=== PATIENT | female | born 1995 | race Two or more races ===

== ENCOUNTER 2017-04-12 20:00 | Emergency (ER) | payer MEDICAID ==
[2017-04-12] MEDS ORDERED: NS 1,000 ML IV ONE ×2 (20:21→22:39)
--- NOTE | 2017-04-12 20:36 | EDPHY ---
H & P Stated Complaint: Epigastric pain since am, UA home test +Preg Time Seen by Provider: 04/12/17 20:09 HPI/ROS: Patient's mother also provides history this GOPO patient presents with epigastric pain described as pressure and sharp in nature that started shortly after eating part of the breakfast breed amounts at 11:15 a.m. this morning. The pain is been constant since and is described as severe intensity peak intensity 9/10 currently 7 per 8/10. The pain worsened slightly when she is walking or upright. No other exacerbating factors are noted. She tried ibuprofen before realizing she is not supposed to take ibuprofen early earlier today and also took some Tums with no relief from either medication. She has never had this pain before. She has had some acid reflux symptoms recently-slightly more than usual. She has also had repeated nausea and vomiting today. She is sporadic nausea vomiting over the past week that she attributes to early . Her last menstrual. Was mid February and she had positive home test this week. Her mother brought her in by private vehicle for further evaluation. Patient reports that this was unintentional but that she wants to keep the baby. ROS: Constitutional: No fevers or chills HEENT: No URI symptoms or other complaints Pulmonary: No cough. No shortness of breath. Cardiovascular: No heart palpitations lightheadedness GI: No hematemesis or coffee-ground emesis. No lower belly pain. : No vaginal discharge or vaginal bleeding. No dysuria. Integumentary: No skin rash Endocrine: No complaints 10 point ROS is otherwise negative. Source: Patient, Family Exam Limitations: No limitations - Personal History LMP (Females 10-55): Current Tetanus/Diphtheria Vaccine: Unsure Current Tetanus Diphtheria and Acellular Pertussis (TDAP): Unsure - Medical/Surgical History Hx Asthma: No Hx Chronic Respiratory Disease: No Hx Diabetes: No Hx Cardiac Disease: No Hx Renal Disease: No Hx Cirrhosis: No Hx Alcoholism: No Hx HIV/AIDS: No Hx Splenectomy or Spleen Trauma: No Other PMH: childhood asthma. - Family History Significant Family History: No pertinent family hx - Social History Smoking Status: Never smoked Alcohol Use: Rarely Drug Use: None - Physical Exam Exam: General Appearance: Alert, no distress. Eyes: Pupils equal and round no pallor or injection. ENT, Mouth: Mucous membranes moist. Respiratory: There are no retractions, lungs are clear to auscultation. Cardiovascular: Regular rate and rhythm. Gastrointestinal: Hypoactive bowel sounds. Patient has diffuse upper belly tenderness that seems to be most prominent and left upper quadrant epigastrium with moderate right upper quadrant tenderness. No rebound. She has mild voluntary guarding. No hepatomegaly or splenomegaly. Back: No CVA tenderness Neurological: GCS 15. No focal deficits noted. Skin: Warm and dry, no rashes. Musculoskeletal: Neck is supple nontender. Extremities are symmetrical, full range of motion. Psychiatric: Slightly flat affect but otherwise mood is normal. DIFFERENTIAL DIAGNOSIS: After history and physical exam differential diagnosis was considered for gastritis, esophagitis, pancreatitis, cholecystitis, ulcer Constitutional: Initial Vital Signs Temperature (C) 36.5 C 04/12/17 20:05 Heart Rate 69 04/12/17 20:05 Respiratory Rate 18 04/12/17 20:05 Blood Pressure 124/70 H 04/12/17 20:05 O2 Sat (%) 99 04/12/17 20:05 O2 Delivery Mode Room Air Allergies/Adverse Reactions: No Known Allergies Allergy (Unverified 04/12/17 20:14) Home Medications: Medication Instructions Recorded Doxylamine/Pyridoxine HCl (B6) 2 each PO HS #30 tablet. 04/12/17 [Sridevi Griffith 10-10 mg Tablet] Pantoprazole Sodium [Protonix 40mg 40 mg PO DAILY #20 tab 04/12/17 (*)] Promethazine 25Mg Supp Prepk#4 1 btl TAKEHOME Q6 #1 btl 04/12/17 [Phenergan 25Mg Supp Prepack#4] Medical Decision Making ED Course/Re-evaluation: IV normal saline bolus IV morphine and Benadryl IV With mild improvement in pain and nausea. Patient is treated with Maalox thereafter without much change in her symptoms. IV Protonix. She then had recurrence of vomiting. No hematemesis. No coffee- ground emesis. Emesis appears slightly bilious She felt improved after vomiting initially declined IV Reglan and Benadryl however had recurrence at 10:40 p.m. and then agreed to medications. IV Reglan and Benadryl Repeat 1L NS bolus Discussion: Given benign LFTs and lipase, history of frequent vomiting recently in association with 1st trimester , I suspect this patient has gastritis & possibly esophagitis. I counseled regarding this. She has no lower belly tenderness or pain that would suggest ectopic . At a 11:15 p.m. this patient is resting comfortably with plan for discharge home pending no further emesis. I did discuss this case with Dr. Roberts will assume care if there is any complications prior to discharge. - Data Points Laboratory Results: Laboratory Results 04/12/17 20:20 04/12/17 20:20 04/12/17 04/12/17 04/12/17 21:55 20:20 20:20 WBC RBC Hgb Hct MCV MCH MCHC RDW Plt Count MPV Neut % (Auto) Lymph % (Auto) [place] % (Auto) Eos % (Auto) Baso % (Auto) Nucleat RBC Rel Count Absolute Neuts (auto) Absolute Lymphs (auto) Absolute Monos (auto) Absolute Eos (auto) Absolute Basos (auto) Absolute Nucleated RBC Immature Gran % Immature Gran # Sodium 137 mEq/L mEq/L (134-144) Potassium 4.4 mEq/L mEq/L (3.5-5.2) Chloride 100 mEq/L mEq/L (97-110) Carbon Dioxide 21 mEq/l L mEq/l (22-31) Anion Gap 16 mEq/L mEq/L (8-16) BUN 8 mg/dL mg/dL (7-23) Creatinine 0.6 mg/dL mg/dL (0.6-1.0) Estimated GFR > 60 Glucose 103 mg/dL H mg/dL (70-100) Calcium 10.4 mg/dL mg/dL (8.5-10.4) Total Bilirubin 0.9 mg/dL mg/dL (0.1-1.4) AST 23 IU/L IU/L (14-46) ALT 28 IU/L IU/L (9-52) Alkaline Phosphatase 67 IU/L IU/L (38-126) Total Protein 8.3 g/dL H g/dL (6.3-8.2) Albumin 4.7 g/dL g/dL (3.5-5.0) Lipase 139 IU/L IU/L (23-300) Beta HCG, Qual POSITIVE Urine Color YELLOW Urine Appearance CLEAR Urine pH 7.5 (5.0-7.5) Ur Specific [place] 1.015 (1.002-1.030) Urine Protein TRACE H (NEGATIVE) Urine Ketones 3+ H (NEGATIVE) Urine Blood NEGATIVE (NEGATIVE) Urine Nitrate NEGATIVE (NEGATIVE) Urine Bilirubin NEGATIVE (NEGATIVE) Urine Urobilinogen 1.0 EU EU (0.2-1.0) Ur Leukocyte Esterase NEGATIVE (NEGATIVE) Urine RBC 0-1 /hpf /hpf (0-3) Urine WBC 0-1 /hpf /hpf (0-3) Ur Epithelial Cells 2+ /lpf H /lpf (NONE-1+) Urine Bacteria 2+ /hpf H /hpf (NONE SEEN) Urine Mucus 3+ /lpf H /lpf (NONE-1+) Urine Glucose NEGATIVE (NEGATIVE) 04/12/17 20:20 WBC 12.89 10^3/uL H 10^3/uL (3.80-9.50) RBC 5.36 10^6/uL H 10^6/uL (4.18-5.33) Hgb 14.2 g/dL g/dL (12.6-16.3) Hct 43.0 % % (38.0-47.0) MCV 80.2 fL L fL (81.5-99.8) MCH 26.5 pg L pg (27.9-34.1) MCHC 33.0 g/dL g/dL (32.4-36.7) RDW 13.3 % % (11.5-15.2) Plt Count 405 10^3/uL H 10^3/uL (150-400) MPV 9.6 fL fL (8.7-11.7) Neut % (Auto) 75.0 % H % (39.3-74.2) Lymph % (Auto) 18.5 % % (15.0-45.0) [place] % (Auto) 5.6 % % (4.5-13.0) Eos % (Auto) 0.3 % L % (0.6-7.6) Baso % (Auto) 0.2 % L % (0.3-1.7) Nucleat RBC Rel Count 0.0 % % (0.0-0.2) Absolute Neuts (auto) 9.66 10^3/uL H 10^3/uL (1.70-6.50) Absolute Lymphs (auto) 2.39 10^3/uL 10^3/uL (1.00-3.00) Absolute Monos (auto) 0.72 10^3/uL 10^3/uL (0.30-0.80) Absolute Eos (auto) 0.04 10^3/uL 10^3/uL (0.03-0.40) Absolute Basos (auto) 0.03 10^3/uL 10^3/uL (0.02-0.10) Absolute Nucleated RBC 0.00 10^3/uL 10^3/uL (0-0.01) Immature Gran % 0.4 % % (0.0-1.1) Immature Gran # 0.05 10^3/uL 10^3/uL (0.00-0.10) Sodium Potassium Chloride Carbon Dioxide Anion Gap BUN Creatinine Estimated GFR Glucose Calcium Total Bilirubin AST ALT Alkaline Phosphatase Total Protein Albumin Lipase Beta HCG, Qual Urine Color Urine Appearance Urine pH Ur Specific [place] Urine Protein Urine Ketones Urine Blood Urine Nitrate Urine Bilirubin Urine Urobilinogen Ur Leukocyte Esterase Urine RBC Urine WBC Ur Epithelial Cells Urine Bacteria Urine Mucus Urine Glucose Medications Given: Discontinued Medications Al Hydroxide/Mg Hydroxide (Maalox Susp) 30 ml PO EDNOW ONE Stop: 04/12/17 20:52 Last Admin: 04/12/17 21:00 Dose: 30 ml Diphenhydramine HCl (Benadryl Injection) 25 mg IVP EDNOW ONE Stop: 04/12/17 20:30 Last Admin: 04/12/17 20:35 Dose: 25 mg Diphenhydramine HCl (Benadryl Injection) 25 mg IVP EDNOW ONE Stop: 04/12/17 21:52 Last Admin: 04/12/17 22:41 Dose: 25 mg Sodium Chloride (Ns) 1,000 mls @ 0 mls/hr IV EDNOW ONE; Wide Open PRN Reason: Protocol Stop: 04/12/17 20:22 Last Admin: 04/12/17 20:24 Dose: 1,000 mls Pantoprazole Sodium 40 mg/ (Sodium Chloride) 100 mls @ 200 mls/hr IV EDNOW ONE Stop: 04/12/17 21:45 Last Admin: 04/12/17 21:23 Dose: 100 mls Sodium Chloride (Ns) 1,000 mls @ 0 mls/hr IV EDNOW ONE; Wide Open PRN Reason: Protocol Stop: 04/12/17 22:40 Last Admin: 04/12/17 22:42 Dose: 1,000 mls Metoclopramide HCl (Reglan Injection) 5 mg IVP EDNOW ONE Stop: 04/12/17 21:52 Last Admin: 04/12/17 22:41 Dose: 5 mg Morphine Sulfate (Morphine) 4 mg IVP EDNOW ONE Stop: 04/12/17 20:30 Last Admin: 04/12/17 20:36 Dose: 4 mg Departure - Departure Disposition: Home, Routine, Self-Care Clinical Impression: First trimester , Vomiting during , Dehydration Gastritis Qualifiers: Gastritis type: other gastritis Chronicity: acute Gastritis bleeding: without bleeding Qualified Code(s): K29.00 - Acute gastritis without bleeding Condition: Good Instructions: Nausea and Vomiting in (ED), Gastritis (ED), Diet for Stomach Ulcers and Gastritis (ED) Additional Instructions: Diagnoses: 1. Gastritis 2. Vomiting with 1st trimester Plan: [place] diet Drink plenty fluids Protonix acid fabricio Diclegis for nausea vomiting as prescribed If you still unable to control nausea/vomiting with diclegis, then use phenergan suppository - 1 per 6 hrs as needed. Call Dr. Beckett, [facility] to arrange follow-up appointment for further evaluation. Return to the emergency department for any significant worsening despite the treatment plan Referrals: NONE *PRIMARY CARE P,. [Primary Care Provider] - As per Instructions Tanesha Beckett DO [Doctor of Osteopathy] - As per Instructions Prescriptions: Doxylamine/Pyridoxine HCl (B6) [Sridevi Griffith 10-10 mg Tablet] 2 each PO HS #30 tablet. Pantoprazole Sodium [Protonix 40mg (*)] 40 mg PO DAILY #20 tab Promethazine 25Mg Supp Prepk#4 [Phenergan 25Mg Supp Prepack#4] 1 btl TAKEHOME Q6 #1 btl
[2017-04-12 20:38] LABS: % IMMATURE GRANULYOCYTES 0.4 % (0.0-1.1); ABSOLUTE IMMATURE GRANULOCYTES 0.05 10^3/uL (0.00-0.10); ADD DIFF? NO; ADD MORPH? NO; ADD SCAN? NO; ATYPICAL LYMPHOCYTE FLAG 10 (0-99); FRAGMENT RBC FLAG 0 (0-99); HEMOGLOBIN 14.2 g/dL (12.6-16.3); LEFT SHIFT FLG 0 (0-99); LIPEMIA HEMOLYSIS FLAG 80 (0-99); MEAN CELL HEMOGLOBIN 26.5 pg (27.9-34.1); MEAN CELL VOLUME 80.2 fL (81.5-99.8); MEAN PLATELET VOLUME 9.6 fL (8.7-11.7); PLATELET CLUMPS FLAG 0 (0-99); PLATELET COUNT 405 10^3/uL (150-400); RED BLOOD CELL COUNT 5.36 10^6/uL (4.18-5.33); RED CELL DISTRIBUTION WIDTH 13.3 % (11.5-15.2)
[2017-04-12 20:43] VITALS: O2SAT 100
[2017-04-12 20:45] LABS: ALANINE AMINOTRANSFERASE 28 IU/L (9-52); ALBUMIN 4.7 g/dL (3.5-5.0); ALKALINE PHOSPHATASE 67 IU/L (38-126); ANION GAP 16 mEq/L (8-16); ASPARTATE AMINOTRANSFERASE 23 IU/L (14-46); BILIRUBIN,TOTAL 0.9 mg/dL (0.1-1.4); CALCIUM 10.4 mg/dL (8.5-10.4); CARBON DIOXIDE 21 mEq/l (22-31); CHLORIDE 100 mEq/L (97-110); CREATININE 0.6 mg/dL (0.6-1.0); GLOMERULAR FILTRATION RATE > 60; GLUCOSE 103 mg/dL (70-100); POTASSIUM 4.4 mEq/L (3.5-5.2); SODIUM 137 mEq/L (134-144); TOTAL PROTEIN 8.3 g/dL (6.3-8.2)
[2017-04-12] MEDS ORDERED: MAG HYDROX/AL HYDROX/SIMETH 30 ML UDCUP PO ONE (20:51)
[2017-04-12 21:12] VITALS: PULSE 73
[2017-04-12] MEDS ORDERED: PANTOPRAZOLE SODIUM 40 MG in NS 100 ML IV ONE (21:16)
[2017-04-12] MEDS ORDERED: ONDANSETRON 4 MG/2 ML VIAL ONE (21:49)
[2017-04-12] MEDS ORDERED: METOCLOPRAMIDE 10 MG/2 ML VIAL IVP ONE (21:51)
[2017-04-12 22:19] LABS: COLOR YELLOW; LEUKOCYTE ESTERASE,URINE NEGATIVE (NEGATIVE); NITRITE,URINE NEGATIVE (NEGATIVE); PH,URINE 7.5 (5.0-7.5)
[2017-04-12 22:32] LABS: MUCUS 3+ /lpf (NONE-1+)
[2017-04-12 22:35] LABS: BACTERIA 2+ /hpf (NONE SEEN); RBC,URINE 0-1 /hpf (0-3); WBC,URINE 0-1 /hpf (0-3)
[2017-04-13 00:06] VITALS: BP 104/71; RESP 14; TEMP 97.9
== END 2017-04-12 23:55 | disposition home or self-care (01) ==
LOC: CED 20:00
DX: O21.0 Mild hyperemesis gravidarum (principal); O99.281 Endocrine, nutritional and metabolic diseases complicating pregnancy, first trimester; O99.611 Diseases of the digestive system complicating pregnancy, first trimester; J45.909 Unspecified asthma, uncomplicated; E86.9 Volume depletion, unspecified; Z3A.00 Weeks of gestation of pregnancy not specified
CPT/HCPCS: 80053-PO; 81003-PO; 81015-PO; 83690-PO; 84703-PO; 85025-PO; 96365; J1200; J2405; J2765

== ENCOUNTER 2017-05-08 16:26 | Emergency (ER) | payer MEDICAID ==
--- NOTE | 2017-05-08 16:43 | EDPHY ---
H & P Time Seen by Provider: 05/08/17 16:37 - Medical/Surgical History Hx Asthma: No Hx Chronic Respiratory Disease: No Hx Diabetes: No Hx Cardiac Disease: No Hx Renal Disease: No Hx Cirrhosis: No Hx Alcoholism: No Hx HIV/AIDS: No Hx Splenectomy or Spleen Trauma: No Other PMH: childhood asthma. - Social History Smoking Status: Never smoked Constitutional: Initial Vital Signs Temperature (C) 37.2 C 05/08/17 16:36 Heart Rate 99 05/08/17 16:36 Respiratory Rate 16 05/08/17 16:36 Blood Pressure 119/81 H 05/08/17 16:36 O2 Sat (%) 98 05/08/17 16:36 O2 Delivery Mode Room Air Allergies/Adverse Reactions: No Known Allergies Allergy (Unverified 04/12/17 20:14) Home Medications: Medication Instructions Recorded Doxylamine/Pyridoxine HCl (B6) 2 each PO HS #30 tablet. 04/12/17 [Sridevi Griffith 10-10 mg Tablet] Pantoprazole Sodium [Protonix 40mg 40 mg PO DAILY #20 tab 04/12/17 (*)] Promethazine 25Mg Supp Prepk#4 1 btl TAKEHOME Q6 #1 btl 04/12/17 [Phenergan 25Mg Supp Prepack#4] Medical Decision Making ED Course/Re-evaluation: CHIEF COMPLAINT: Nausea and vomiting HISTORY OF PRESENT ILLNESS: Patient is 13 weeks and she has had significant issues with nausea and vomiting throughout the . She was in this hospital a few weeks ago with similar problem. She followed up with her OB doctor who gave her a couple of other treatment protocols that seem to be helping but over the last 24-48 hours she has been much worse. She can barely hold down water. She denies fever or chills she denies diarrhea she denies abdominal cramps. She just has severe nausea and vomiting similar to her morning sickness. REVIEW OF SYSTEMS: A 10 point review of systems was performed and is negative with the exception of the elements mentioned in the history of present illness. PHYSICAL EXAM: HR, BP, O2 Sat, RR. Temp noted General Appearance: Alert, well hydrated, appropriate, and non-toxic appearing. Head: Atraumatic without scalp tenderness or obvious injury Eyes: Pupils equal, round, reactive to light and accommodation, EOMI, no trauma , no injection. Ears: Clear bilaterally, no perforation, normal landmarks Nose: Atraumatic, no rhinorrhea, clear. Throat: There is no erythema or exudates, no lesions, normal tonsils, mucus membranes moist. Neck: Supple, 2+ carotid upstroke, nontender, no lymphadenopathy. Respiratory: No retractions, no distress, no wheezes, and no accessory muscle use. Lungs are clear to auscultation bilaterally. Cardiovascular: Regular rate and rhythm, no murmurs, rubs, or gallops. Bilateral carotid, radial, dorsalis pedis, and posterior tibial pulses intact. Good capillary refill all extremities. Gastrointestinal: Abdomen is soft, nontender, non-distended, no masses, no rebound, no guarding, no peritoneal signs. Musculoskeletal: Normal active ROM of all extremities, atraumatic. Neurological: Alert, appropriate, and interactive. The patient has normal DTRs and non-focal cranial nerves, motor, sensory, and cerebellar exam. Skin: No rashes, good turgor, no nodules on palpation. Past medical history: Patient denies Past surgical history: Patient denies Family history: Noncontributory Social history: Here with her mother, employed, does not use tobacco drugs or alcohol DIFFERENTIAL DIAGNOSIS: The differential diagnosis for the patient's nausea and vomiting included but was not limited to gastroenteritis, gastritis, appendicitis, hyperemesis gravidarum, and medication side effect. MEDICAL DECISION MAKING: This patient is slightly dehydrated. She has been unable to hold down liquids since yesterday. We will give her 2 L to 3 L of intravenous fluid and 4 mg of Zofran to start. We will add additional antiemetics and fluids if needed. She has a follow-up appointment with her OB doctor tomorrow. This patient is feeling much better from a nausea standpoint and she received 2 L of fluid and is feeling more hydrated. We did give her a GI cocktail since she was having some gastritis type symptoms however she did vomit that up. I do not think there is much else to do at this point. The patient is safe. The patient is hydrated. The patient has Zofran at home. She has an appointment tomorrow with her physician. - Data Points Laboratory Results: Laboratory Results 05/08/17 16:54 05/08/17 16:54 05/08/17 05/08/17 16:54 16:54 WBC 13.17 10^3/uL H 10^3/uL (3.80-9.50) RBC 5.34 10^6/uL H 10^6/uL (4.18-5.33) Hgb 14.1 g/dL g/dL (12.6-16.3) Hct 42.5 % % (38.0-47.0) MCV 79.6 fL L fL (81.5-99.8) MCH 26.4 pg L pg (27.9-34.1) MCHC 33.2 g/dL g/dL (32.4-36.7) RDW 13.8 % % (11.5-15.2) Plt Count 328 10^3/uL 10^3/uL (150-400) MPV 9.5 fL fL (8.7-11.7) Neut % (Auto) 80.5 % H % (39.3-74.2) Lymph % (Auto) 12.8 % L % (15.0-45.0) [place] % (Auto) 6.0 % % (4.5-13.0) Eos % (Auto) 0.0 % L % (0.6-7.6) Baso % (Auto) 0.2 % L % (0.3-1.7) Nucleat RBC Rel Count 0.0 % % (0.0-0.2) Absolute Neuts (auto) 10.62 10^3/uL H 10^3/uL (1.70-6.50) Absolute Lymphs (auto) 1.68 10^3/uL 10^3/uL (1.00-3.00) Absolute Monos (auto) 0.79 10^3/uL 10^3/uL (0.30-0.80) Absolute Eos (auto) 0.00 10^3/uL L 10^3/uL (0.03-0.40) Absolute Basos (auto) 0.02 10^3/uL 10^3/uL (0.02-0.10) Absolute Nucleated RBC 0.00 10^3/uL 10^3/uL (0-0.01) Immature Gran % 0.5 % % (0.0-1.1) Immature Gran # 0.06 10^3/uL 10^3/uL (0.00-0.10) Sodium 137 mEq/L mEq/L (134-144) Potassium 4.0 mEq/L mEq/L (3.5-5.2) Chloride 101 mEq/L mEq/L (97-110) Carbon Dioxide 19 mEq/l L mEq/l (22-31) Anion Gap 17 mEq/L H mEq/L (8-16) BUN 8 mg/dL mg/dL (7-23) Creatinine 0.5 mg/dL L mg/dL (0.6-1.0) Estimated GFR > 60 Glucose 106 mg/dL H mg/dL (70-100) Calcium 10.2 mg/dL mg/dL (8.5-10.4) Medications Given: Discontinued Medications Al Hydroxide/Mg Hydroxide (Maalox Susp) 30 ml PO ONCE ONE Stop: 05/08/17 17:43 Last Admin: 05/08/17 17:54 Dose: 30 ml Hyoscyamine Sulfate (Levsin, Hyomax-Sl) 0.25 mg PO ONCE ONE Stop: 05/08/17 17:43 Last Admin: 05/08/17 17:54 Dose: 0.25 mg Sodium Chloride (Ns) 1,000 mls @ 0 mls/hr IV EDNOW ONE; Wide Open PRN Reason: Protocol Stop: 05/08/17 16:45 Last Admin: 05/08/17 16:54 Dose: 1,000 mls Sodium Chloride (Ns) 1,000 mls @ 0 mls/hr IV EDNOW ONE; Wide Open PRN Reason: Protocol Stop: 05/08/17 16:45 Last Admin: 05/08/17 17:39 Dose: 1,000 mls Lidocaine (Lidocaine 2% Viscous) 15 ml PO ONCE ONE Stop: 05/08/17 17:43 Last Admin: 05/08/17 17:54 Dose: 15 ml Ondansetron HCl (Zofran) 4 mg IVP EDNOW ONE Stop: 05/08/17 16:45 Last Admin: 05/08/17 16:58 Dose: 4 mg Departure - Departure Disposition: Home, Routine, Self-Care Clinical Impression: Hyperemesis gravidarum with dehydration Condition: Good Instructions: Hyperemesis Gravidarum (ED) Additional Instructions: Follow up with your doctor as scheduled tomorrow Referrals: NONE *PRIMARY CARE P,. [Primary Care Provider] - As per Instructions
[2017-05-08] MEDS ORDERED: NS 1,000 ML IV ONE ×2 (16:44)
[2017-05-08] MEDS ORDERED: ONDANSETRON 4 MG/2 ML VIAL IVP ONE (16:44)
[2017-05-08 17:25] LABS: % IMMATURE GRANULYOCYTES 0.5 % (0.0-1.1); ABSOLUTE IMMATURE GRANULOCYTES 0.06 10^3/uL (0.00-0.10); ADD DIFF? NO; ADD MORPH? NO; ADD SCAN? NO; ATYPICAL LYMPHOCYTE FLAG 0 (0-99); FRAGMENT RBC FLAG 0 (0-99); HEMATOCRIT 42.5 % (38.0-47.0); HEMOGLOBIN 14.1 g/dL (12.6-16.3); LEFT SHIFT FLG 0 (0-99); LIPEMIA HEMOLYSIS FLAG 80 (0-99); MEAN CELL HEMOGLOBIN 26.4 pg (27.9-34.1); MEAN CELL HEMOGLOBIN CONCENTR. 33.2 g/dL (32.4-36.7); MEAN CELL VOLUME 79.6 fL (81.5-99.8); MEAN PLATELET VOLUME 9.5 fL (8.7-11.7); PLATELET CLUMPS FLAG 0 (0-99); PLATELET COUNT 328 10^3/uL (150-400); RED BLOOD CELL COUNT 5.34 10^6/uL (4.18-5.33); RED CELL DISTRIBUTION WIDTH 13.8 % (11.5-15.2)
[2017-05-08 17:36] LABS: ANION GAP 17 mEq/L (8-16); CALCIUM 10.2 mg/dL (8.5-10.4); CARBON DIOXIDE 19 mEq/l (22-31); CHLORIDE 101 mEq/L (97-110); CREATININE 0.5 mg/dL (0.6-1.0); GLOMERULAR FILTRATION RATE > 60; GLUCOSE 106 mg/dL (70-100); SODIUM 137 mEq/L (134-144)
[2017-05-08] MEDS ORDERED: HYOSCYAMINE SULFATE 0.125 MG TAB PO ONE (17:42)
[2017-05-08] MEDS ORDERED: LIDOCAINE 2% VISCOUS 15 ML UDCUP PO ONE (17:42)
[2017-05-08] MEDS ORDERED: MAG HYDROX/AL HYDROX/SIMETH 30 ML UDCUP PO ONE (17:42)
[2017-05-08 18:16] VITALS: BP 138/58; PULSE 85; RESP 18; O2SAT 99
[2017-05-08 18:17] VITALS: TEMP 97.9
== END 2017-05-08 18:18 | disposition home or self-care (01) ==
LOC: CED 16:26
DX: O21.1 Hyperemesis gravidarum with metabolic disturbance (principal); J45.909 Unspecified asthma, uncomplicated
CPT/HCPCS: 80048-PO; 85025-PO; 96374; J2405

== ENCOUNTER 2017-05-21 16:25 | Emergency (ER) | payer MEDICAID ==
[2017-05-21] MEDS ORDERED: NS 1,000 ML IV ONE ×2 (16:40)
--- NOTE | 2017-05-21 16:42 | EDPHY ---
H & P Stated Complaint: vomiting Since April visit , ~ 15ks Time Seen by Provider: 05/21/17 16:36 HPI/ROS: CHIEF COMPLAINT: Vomiting HISTORY OF PRESENT ILLNESS: The patient is a 21-year-old female female at 15 weeks gestational age. She is followed by [facility]. She has hyperemesis gravidarum. She has been here 3 times for hydration. She is currently taking Diclegis and Zofran with minimal improvement. She denies cramping bleeding or discharge. No urinary symptoms. No abdominal pain. No fever. REVIEW OF SYSTEMS: Constitutional: denies: chills, fever, recent illness, recent injury EENTM: denies: blurred vision, double vision, nose congestion Respiratory: denies: cough, shortness of breath Cardiac: denies: chest pain, irregular heart rate, lightheadedness, palpitations Gastrointestinal/Abdominal: See HPI, no diarrhea Genitourinary: denies: dysuria, frequency, hematuria, pain Musculoskeletal: denies: joint pain, muscle pain Skin: denies: lesions, rash, jaundice, bruising Neurological: denies: headache, numbness, paresthesia, tingling, dizziness, weakness Hematologic/Lymphatic: denies: blood clots, easy bleeding, easy bruising Immunologic/allergic: denies: HIV/AIDS, transplant EXAM: GENERAL: Well-appearing, well-nourished and in no acute distress. HEAD: Atraumatic, normocephalic. EYES: Pupils equal round and reactive to light, extraocular movements intact, sclera anicteric, conjunctiva are normal. ENT: TMs normal, nares patent, oropharynx clear without exudates. Moist mucous membranes. NECK: Normal range of motion, supple without lymphadenopathy or JVD. LUNGS: Breath sounds clear to auscultation bilaterally and equal. No wheezes rales or rhonchi. HEART: Regular rate and rhythm without murmurs, rubs or gallops. ABDOMEN: Gravid uterus, nontender, no contractions, nontender abdomen BACK: No CVA tenderness, no spinal tenderness, step-offs or deformities EXTREMITIES: Normal range of motion, no pitting or edema. No clubbing or cyanosis. NEUROLOGICAL: Cranial nerves II through XII grossly intact. Normal speech, normal gait. 5/5 strength, normal movement in all extremities, normal sensation PSYCH: Normal mood, normal affect. SKIN: Warm, dry, normal turgor, no visible rashes or lesions. Source: Patient Exam Limitations: No limitations - Personal History LMP (Females 10-55): Current Tetanus/Diphtheria Vaccine: Unsure Current Tetanus Diphtheria and Acellular Pertussis (TDAP): Unsure - Medical/Surgical History Hx Asthma: No Hx Chronic Respiratory Disease: No Hx Diabetes: No Hx Cardiac Disease: No Hx Renal Disease: No Hx Cirrhosis: No Hx Alcoholism: No Hx HIV/AIDS: No Hx Splenectomy or Spleen Trauma: No Other PMH: childhood asthma. - Family History Significant Family History: No pertinent family hx - Social History Smoking Status: Never smoked Alcohol Use: Sober Drug Use: None Constitutional: Initial Vital Signs Temperature (C) 36.6 C 05/21/17 16:30 Heart Rate 100 05/21/17 16:30 Respiratory Rate 20 05/21/17 16:30 Blood Pressure 134/98 H 05/21/17 16:30 O2 Sat (%) 98 05/21/17 16:30 O2 Delivery Mode Room Air Allergies/Adverse Reactions: No Known Allergies Allergy (Unverified 05/21/17 16:28) Home Medications: Medication Instructions Recorded Doxylamine/Pyridoxine HCl (B6) 2 each PO HS #30 tablet. 04/12/17 [Sridevi Griffith 10-10 mg Tablet] Malik 05/21/17 Medical Decision Making ED Course/Re-evaluation: 5:50 p.m. the patient is feeling much better. She is eating apple sauce. She has had 1 L of fluid. We will give her 2nd. Her abdominal exam remains benign. 6:50 p.m. the patient is doing well. She is tolerating p.o.. She feels much more hydrated. She is eager to leave. Her mom is here to take her. Differential Diagnosis: Partial list of the Differential diagnosis considered include but were not limited to; hyperemesis gravidarum, dehydration and although unlikely based on the history and physical exam, I also considered biliary disease, pancreatic disease, perforated ulcer, pre term labor, placenta previa, threatened , . I discussed these differential diagnoses and the plan with the patient as well as the usual and expected course. The patient understands that the diagnosis is provisional and that in medicine we are not always correct and that further workup is often warranted. Usual and customary warnings were given. All of the patient's questions were answered. The patient was instructed to return to the emergency department should the symptoms at all worsen or return, otherwise to followup with the physician as we discussed. - Data Points Medications Given: Discontinued Medications Sodium Chloride (Ns) 1,000 mls @ 0 mls/hr IV EDNOW ONE; Wide Open PRN Reason: Protocol Stop: 05/21/17 16:41 Last Admin: 05/21/17 16:56 Dose: 1,000 mls Sodium Chloride (Ns) 1,000 mls @ 0 mls/hr IV EDNOW ONE; Wide Open PRN Reason: Protocol Stop: 05/21/17 16:41 Last Admin: 05/21/17 17:54 Dose: 1,000 mls Departure - Departure Disposition: Home, Routine, Self-Care Clinical Impression: Hyperemesis gravidarum Condition: Fair Instructions: Hyperemesis Gravidarum (ED) Referrals: NONE *PRIMARY CARE P,. [Primary Care Provider] - As per Instructions
[2017-05-21 18:52] VITALS: BP 139/89; PULSE 93; RESP 16; TEMP 98.8; O2SAT 100
== END 2017-05-21 19:02 | disposition home or self-care (01) ==
LOC: CED 16:25
DX: O21.0 Mild hyperemesis gravidarum (principal); J45.909 Unspecified asthma, uncomplicated; E86.9 Volume depletion, unspecified; Z3A.15 15 weeks gestation of pregnancy